=== PATIENT | female | born 1980 | race Caucasian/White ===

== ENCOUNTER 2023-08-15 12:00 | Emergency (ER) | payer BC ==
[~2023-08-15] VITALS: Ht 165.1 cm; Wt 100.2 kg
[2023-08-15 13:04] LABS: BASOPHILS # (AUTO) 0.1 X10'3 (0-0.2); BASOPHILS % (AUTO) 0.9 % (0-1); EOSINOPHILS # (AUTO) 0.3 X10'3 (0-0.9); EOSINOPHILS % (AUTO) 3.7 % (0-6); HEMATOCRIT 45.2 % (35.0-45.0); HEMOGLOBIN 15.2 g/dl (12.0-16.0); LYMPHOCYTES # (AUTO) 1.9 X10'3 (1.1-4.8); LYMPHOCYTES % (AUTO) 25.5 % (21-51); MEAN CORPUSCULAR HEMOGLOBIN 30.6 PG (27.0-31.0); MEAN CORPUSCULAR HGB CONC 33.7 g/dL (33.0-36.5); MEAN CORPUSCULAR VOLUME 90.8 FL (78-98); MEAN PLATELET VOLUME 7.7 FL (7.4-10.4); MONOCYTES # (AUTO) 0.5 X10'3 (0-0.9); MONOCYTES % (AUTO) 6.3 % (2-12); NEUTROPHILS # (AUTO) 4.8 X10'3 (1.8-7.7); NEUTROPHILS % (AUTO) 63.6 % (42-75); PLATELET COUNT 449 X10'3 (140-440); RED BLOOD COUNT 4.98 X10'6 (4.20-5.60); RED CELL DISTRIBUTION WIDTH 14.4 % (11.5-14.5); WHITE BLOOD COUNT 7.6 X10'3 (4.5-11.0)
[2023-08-15 13:07] LABS: APTT 31 SECONDS (22-32); PROTHROMBIN TIME 10.3 SECONDS (9.0-12.0)
[2023-08-15 13:09] LABS: ALANINE AMINOTRANSFERASE 47 U/L (12-78); ALBUMIN/GLOBULIN RATIO 1.1 (1.1-1.5); ALKALINE PHOSPHATASE 132 IU/L (46-116); ANION GAP 8 (8-16); ASPARTATE AMINO TRANSFERASE 25 U/L (10-37); BILIRUBIN,TOTAL 0.3 MG/DL (0.1-1.0); BLOOD UREA NITROGEN 11 MG/DL (7-18); BUN/CREATININE RATIO 11.5 (10.0-20.0); CHLORIDE 102 MMOL/L (99-107); CREATININE 0.96 MG/DL (0.40-0.90); GLUCOSE 236 MG/DL (70-104); POTASSIUM 3.2 MMOL/L (3.5-5.1); SODIUM 135 MMOL/L (135-145); TOTAL CARBON DIOXIDE 25.3 MMOL/L (24-32); TOTAL PROTEIN 7.8 G/DL (6.4-8.2); eCRCL 68 ML/MIN; eGFR 63 ML/MIN
--- NOTE | 2023-08-15 15:03 | NUR ---
1220 PT TAKEN TO RM [address] ON MONITOR SITTING IN WC WAITING FOR ROOM ASSIGNMENT PT NOTED TO BE TEXTING WHILE SITTING IN ROOM 1415 PT CONTINUES TO SITTING IN RM 17 TEXTING GENERAL /NEURO ASSESSMENT COMPLETED
[2023-08-15 15:17] VITALS: TEMP 98.1
--- NOTE | 2023-08-15 15:23 | NUR ---
PT MEDICATION LIST CELECOXIB 100M G PO NEEDED CYCLOBENZAPRINE 10MG QHS DULOXETINE 60MG BID FOR NERVE PAIN VARENICLINE SMOKING CESSATION MULTI VIT DAILY BABY ASA DAILY
--- NOTE | 2023-08-15 15:43 | NUR ---
TELE NEURO AT BEDSIDE AND BLUE AHSAN PAGED
[2023-08-15] MEDS ORDERED: ketorolac trometh inj. 60 MG/2 ML VIAL IM ONE (16:05)
[2023-08-15] MEDS ORDERED: ketorolac trometh. 30mg/ml inj. IM ONE (16:10)
[2023-08-15 16:17] VITALS: BP 148/107; PULSE 84; RESP 18; O2SAT 95
== END 2023-08-15 16:26 | disposition home or self-care (01) ==
LOC: ER 12:01
DX: G43.109 Migraine with aura, not intractable, without status migrainosus (principal); R53.1 Weakness; R11.2 Nausea with vomiting, unspecified; G89.29 Other chronic pain; I45.6 Pre-excitation syndrome; Z98.890 Other specified postprocedural states
CPT/HCPCS: 36415; 70450; 71045; 80053; 82948; 85025; 85610; 85730; 93005; 96372; 99285; J1885